=== PATIENT | female | born 1975 | race Caucasian/White ===

== ENCOUNTER → 2016-06-23 | Outpatient (CLI) | payer BC ==
--- NOTE | 2016-06-23 12:11 | MG ---
HISTORY: SCREENING Comparison: None FINDINGS: Bilateral CC and MLO projections of the right and left breast were obtained. Heterogeneously dense fibroglandular tissue is seen to be present. No dominant suspicious architectural distortion, mass or clustered microcalcifications can be observed to suggest malignancy. However, there are partiall y obscured and partially circumscribed sub cm isodense nodules in the upper-outer quadrants of both breasts most likely reflecting small cysts, fibroadenomas, and/or intramammary lymph nodes but for w hich targeted sonography is recommended to confirm benign features given the lack of previous exams to document stability. No skin thickening or nipple retraction is appreciated. No pathological lym phadenopathy can be identified. Benign-appearing calcifications are noted within the right and left breast. IMPRESSION: Bilateral upper outer quadrant breast nodules as above for which targeted sonography is recommended. ACR CATEGORY 0 - assessment incomplete; additional imaging recommended. Diagnostic CAD was utilized and reviewed. * 0 (ZERO) - ASSESSMENT INCOMPLETE; ADDITIONAL IMAGING IS NEEDED. * 1/1 (ONE) - NEGATIVE. * 2/II (TWO) - BENIGN FINDINGS. * 3/III (THREE) - PROBABLY BENIGN FINDING; SHORT INTERVAL FOLLOW-UP SUGGESTED. * 4/IV (FOUR) - SUSPICIOUS ABNORMALITY; BIOPSY SHOULD BE CONSIDERED. * 5/V (FIVE) - HIGHLY SUSPICIOUS OF MALIGNANCY; BIOPSY SHOULD BE PERFORMED. A NEGATIVE X-RAY REPORT SHOULD NOT DELAY BIOPSY IF A DOMINANT OR CLINICALLY SUSPICIOUS MASS IS PRESENT; 4 TO 8 PERCENT OF CANCERS ARE NOT IDENTIFIED BY X-RAY. A NEG ATIVE REPORT MAY REINFORCE THE CLINICAL IMPRESSION. ADENOSIS AND DENSE BREASTS MAY OBSCURE AN UNDER LYING NEOPLASM. Reported By:
== END ==
LOC: RAD 09:25
PROVIDERS: ATTEND Obstetrics & Gynecology
DX: Z12.31 Encounter for screening mammogram for malignant neoplasm of breast (principal)
CPT/HCPCS: 77067

== ENCOUNTER → 2016-07-05 | Outpatient (CLI) | payer BC ==
--- NOTE | 2016-07-05 14:19 | US ---
HISTORY: Abnormal screening mammography with bilateral breast nodules Study: Bilateral breast ultrasound Comparison: June 23, 2016 Technique: Multiple grayscale and color Doppler images of both breasts were obtained. Findings: At 9 o'clock on the right, there is a horizontally oriented smoothly marginated and well circumscrib ed 7 mm predominantly anechoic cyst without internal vascularity but with posterior acoustical shado wing which could reflect artifact or perhaps be secondary to peripheral calcifications in the settin g of an oil cyst and which is favored to correspond to the mammographic nodule. There are multiple b enign appearing bilateral axillary lymph nodes with preservation of a normal echogenic fatty fibrova scular core and without focal or diffuse cortical thickening to suggest pathologic lymphadenopathy. At 2 o'clock on the left, there is a superficial horizontally oriented macro lobulated but smoothly marginated and well circumscribed 7 mm mixed echogenicity nodule with a central echogenic fatty hilu m most compatible with a benign intramammary lymph node and felt to correspond to the mammographic f indings. A complex cyst with internal septation could give a similar appearance. There is no focal o r diffuse cortical thickening. No suspicious cystic or solid nodule is seen to warrant biopsy at thi s time. IMPRESSION: Probably benign 9 o'clock right breast nodule for which 6 month sonographic follow up is recommended . BI-RADS 3. Probably benign findings; short interval followup suggested. * 0 (ZERO) - ASSESSMENT INCOMPLETE; ADDITIONAL IMAGING IS NEEDED. * 1/1 (ONE) - NEGATIVE. * 2/II (TWO) - BENIGN FINDINGS. * 3/III (THREE) - PROBABLY BENIGN FINDING; SHORT INTERVAL FOLLOW-UP SUGGESTED. * 4/IV (FOUR) - SUSPICIOUS ABNORMALITY; BIOPSY SHOULD BE CONSIDERED. * 5/V (FIVE) - HIGHLY SUSPICIOUS OF MALIGNANCY; BIOPSY SHOULD BE PERFORMED. * 6/ (SIX) - KNOWN MALIGNANCY. A NEGATIVE X-RAY REPORT SHOULD NOT DELAY BIOPSY IF A DOMINANT OR CLINICALLY SUSPICIOUS MASS IS PRESENT; 4 TO 8 PERCENT OF CANCERS ARE NOT IDENTIFIED BY X-RAY. A NEG ATIVE REPORT MAY REINFORCE THE CLINICAL IMPRESSION. ADENOSIS AND DENSE BREASTS MAY OBSCURE AN UNDER LYING NEOPLASM. Reported By:
== END ==
LOC: RAD 12:05
PROVIDERS: ATTEND Nurse Practitioner Family
DX: R92.8 Other abnormal and inconclusive findings on diagnostic imaging of breast (principal)
CPT/HCPCS: 76642